=== PATIENT | male | born 1970 | race Caucasian/White ===

== ENCOUNTER 2018-03-07 11:02 | Day surgery (SDC) | payer BC ==
--- NOTE | 2018-03-07 09:34 | HP ---
DATE OF SURGERY: 03/07/2018 HISTORY OF PRESENT ILLNESS: The patient is a 47 year-old with esophageal cancer. He has a esophageal pleural fistula. He had a stent placed in [place] now in need of port for usp chemotherapy access. PAST MEDICAL HISTORY: Esophageal cancer. He denied any prior illnesses. PAST SURGICAL HISTORY: Stent placed in [place] in the past for esophageal pleural fistula, esophageal cancer. MEDICATIONS: No medication on a regular basis. ALLERGIES: NKDA. FAMILY HISTORY: Cancer, heart disease. SOCIAL HISTORY: One pack per day smoker. He does drink some alcohol denies abuse. REVIEW OF SYSTEMS: Twelve systems reviewed per admission assessment. No chest pain or palpitations. He had tumor invasion of the esophagus, cavitating tumor right upper lung. Fistulous communication cancer from esophagus to the tumor cavity. PHYSICAL EXAMINATION: A chronically ill gentleman in no acute distress. GENERAL: No acute distress. HEENT: Sclerae nonicteric. NECK: No JVD. CHEST: Equal excursion, nonlabored breathing. CVS: Regular rhythm. ABDOMEN: Soft. No peritoneal signs. EXTREMITIES: No significant edema. NEURO: Alert, oriented, moving extremities symmetrically. No gross motor deficits noted. 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 He is in need of usp IV access for IV treatment. He is a candidate for Port-A-Cath placement. Risks and benefits explained in detail including but not limited to bleeding or infection, risk of hematoma or seroma formation, risk of thrombosis or pneumothorax, risk of catheter or port fracture or failure possibly requiring removal or replacement, general risk of anesthesia, deep venous thrombosis, pulmonary embolism or pneumonia but not limited to. He understands and agrees to the planned procedure. We will proceed with Port-A-Cath placement as an outpatient.
[~2018-03-07 11:02] MED LIST: Lactated Ringers 1,000 ML IV ONE; Lactated Ringers 1,000 ML IV SCH; XYLOCAINE 1% HCL 20 ML MDV ONE
[2018-03-07] MEDS ORDERED: Ketamine HCl 50 MG/ML IV ONE (11:03)
[2018-03-07] MEDS ORDERED: DIPRIVAN 200 MG/20 ML IV ONE (11:03)
[2018-03-07] MEDS ORDERED: CEFAZOLIN 2 GM-D5W BAG** 2 GM/50 ML ML IV ONE (11:22)
[2018-03-07] MEDS ORDERED: Lactated Ringers 1,000 ML IV ONE (11:22)
[2018-03-07] MEDS ORDERED: CEFAZOLIN 2 GM-D5W BAG** 2 GM/50 ML ML IV SCH (11:30)
--- NOTE | 2018-03-07 13:52 | XRAY ---
Indication: Port placement. Intraoperative fluoroscopy was provided for 0.4 second. Single digital spot image submitted for interpretation demonstrates partially visualized left Port-A-Cath with tip in the SVC. There is also a midline mesh stent graft. Correlate with intraoperative findings/report.
--- NOTE | 2018-03-07 15:08 | OP ---
SURGERY DATE/TIME: 03/07/2018 1255 PREOPERATIVE DIAGNOSIS: Esophageal carcinoma perforated to the right chest status post stent placement, need for long-term IV access for IV treatments. POSTOPERATIVE DIAGNOSIS: Esophageal carcinoma perforated to the right chest status post stent placement, need for long-term IV access for IV treatments. PROCEDURE: Tunnel Port-A-Cath placement with C-arm fluoroscopy of left subclavian vein. SURGEON: Dr. Farhan Fay. PIPE LINE INSPECTOR: Clinton Sanchez, [facility] Resident. ANESTHESIA: MAC. ESTIMATED BLOOD LOSS: Minimal. INDICATIONS: As noted above. Risks and benefits explained in detail and not limited to and consent obtained. DESCRIPTION OF PROCEDURE AND FINDINGS: The patient is taken to the operating room. MAC anesthesia introduced. Neck and chest prepped and draped in usual sterile fashion in lithotomy position. 1% Lidocaine local infiltrated left subclavicular area. 18 gauge cannulation needle inserted on first pass. Good dark nonpulsatile venous return. Guide wire passed up. Anesthetizing tunnel track and port pocket. C-arm fluoroscopy confirmed the guide wire down the superior vena cava and transverse incision made inferior subcu. Port pocket created with aid of cautery. Port secured to the chest wall with Prolene suture x2. Catheter tunneled down from cannulation stab wound down to port pocket area. The dilator and break away sheath easily fed over the guide wire. Catheter fed down break away sheath. The tip pulled back in distal superior vena cava on C-arm fluoroscopy. Catheter is cut to appropriate length snapped on the port at the hub. The port aspirated dark, nonpulsatile venous return with ease, flushed with heparinized saline with ease. Lung ontiveros were noted to be up bilaterally. Catheter tip was in the distal superior vena cava. It was felt that no further x-rays were necessary at this point. Good hemostasis is noted. The last spot film C-arm saved. I do not feel further x-rays are necessary at this point. Subcu closed with 3-0 Vicryl, skin closed with 4-0 Vicryl. Cannulation stab wound closed with 4-0 Vicryl. Steri-Strips and sterile dressing applied. 1% lidocaine local had been infiltrated in field pattern around the area at the beginning of the procedure. There were no immediate complications. Findings discussed with the family out in the waiting area.
[2018-03-07 15:28] VITALS: O2SAT 98
[2018-03-07 15:36] VITALS: BP 138/88; PULSE 68
== END 2018-03-07 14:45 | disposition home or self-care (01) ==
LOC: SDC 11:02
PROVIDERS: ATTEND Surgery
DX: C15.9 Malignant neoplasm of esophagus, unspecified (principal); Z72.0 Tobacco use
CPT/HCPCS: 77001; 94250; C1788; J0690; J1642; J2704